=== PATIENT | male | born 1990 | race Caucasian/White ===

== ENCOUNTER 2018-07-14 12:33 | Emergency (ER) | payer OTHER ==
[~2018-07-14] VITALS: Ht 177.8 cm; Wt 70.4 kg
[~2018-07-14 12:33] MED LIST: KEFLEX500 MG PO
[2018-07-14 14:56] VITALS: BP 121/73
== END 2018-07-14 15:04 | disposition home or self-care (01) ==
LOC: EME 12:33
DX: S61.315A Laceration without foreign body of left ring finger with damage to nail, initial encounter (principal); W31.89XA Contact with other specified machinery, initial encounter; Y92.79 Other farm location as the place of occurrence of the external cause; Y99.0 Civilian activity done for income or pay; Z23 Encounter for immunization; Z89.512 Acquired absence of left leg below knee
CPT/HCPCS: 73130; 99281; 99284